=== PATIENT | male | born 1965 | race Caucasian/White ===

== ENCOUNTER 2017-08-19 06:56 | Day surgery (SDC) | payer BC ==
[2017-08-19] MEDS ORDERED: Midazolam 1 MG/ML 2 ML SDV ONE (07:29)
[2017-08-19] MEDS ORDERED: Propofol 200 MG/20 ML SDV ONE (07:29)
[2017-08-19] MEDS ORDERED: fentaNYL 100 MCG/2 ML SDV ONE (07:29)
[2017-08-19] MEDS ORDERED: Lactated Ringers 1,000 ML IV SCH (07:45)
--- NOTE | 2017-08-19 13:59 | OR ---
DATE OF PROCEDURE: 08/19/2017 PREOPERATIVE DIAGNOSIS: Colon cancer screening. POSTOPERATIVE DIAGNOSES: Arreguin-diverticulosis and several rectal polyps. PROCEDURES PERFORMED: Colonoscopy to the cecum with biopsy resection of three small rectal polyps, sent to the laboratory as one specimen; and snare cautery polypectomy of a larger one, sent to the laboratory as a separate specimen. SURGEON: Ash Farley MD. ANESTHESIA: IV anesthesia with monitored anesthesia care. INDICATION: This 51-year-old white male is referred for a colonoscopy for colon cancer screening. He has never had a colonoscopic exam. I counseled him for the procedure, including risks and alternatives, and he gave his informed consent to proceed. DESCRIPTION OF PROCEDURE: The patient was placed in the left lateral decubitus position. IV anesthesia was administered by the Anesthesia Service. Time-out was held. A rectal exam was performed, which was unremarkable. The flexible video Olympus colonoscope was introduced through his anus, up his rectum, and out his colon all the way to the cecum. En route, we saw multiple, both right and left-sided, diverticula. There was no bleeding or inflammation associated with them. Once the cecum was reached, the scope was slowly withdrawn, examining the mucosa throughout. No additional mucosal abnormalities were noted until we reached the proximal colon. Here, we saw three small polyps adjacent to each other. These were removed with the biopsy forceps and sent to the laboratory as one specimen. The scope was withdrawn a little further. In the mid-rectum, we encountered another larger polyp. This was initially biopsied. Since it was too large to remove using this technique, it was removed with a snare. This involved placing a snare about its base, elevating the polyp up away from the bowel wall, and applying electrocautery as the polyp was amputated. The polyp was aspirated through the scope and captured in a polyp trap. The scope was retroflexed in the rectum with the distal rectum appearing unremarkable. The scope was straightened and removed. He tolerated the procedure well. Ash Farley MD /[id number] MTDD
== END 2017-08-19 10:26 | disposition home or self-care (01) ==
LOC: JP.SDS 06:56
PROVIDERS: ATTEND Surgery
DX: Z12.11 Encounter for screening for malignant neoplasm of colon (principal); K62.1 Rectal polyp; K57.30 Diverticulosis of large intestine without perforation or abscess without bleeding; Z88.8 Allergy status to other drugs, medicaments and biological substances; F17.200 Nicotine dependence, unspecified, uncomplicated
CPT/HCPCS: 45380; 45385; J2250; J2704; J3010; J7120; 88305

== ENCOUNTER 2019-09-17 22:24 | Emergency (ER) | payer BC, OTHER ==
--- NOTE | 2019-09-17 23:38 | EDM.PDOC ---
ED HPI GENERAL MEDICAL PROBLEM - General Chief Complaint: Upper Extremity Injury/Pain Stated Complaint: SMASHED MIDDLE AND RING FINGER/LT HAND Time Seen by Provider: 09/17/19 23:29 Source of Information: Reports: Patient History Limitations: Reports: No Limitations - History of Present Illness INITIAL COMMENTS - FREE TEXT/NARRATIVE: Patient presents for evaluation of injury to the left middle and ring finger after he was working at home and a wall-mounted clock fell off and crushed the previously mentioned to fingers. Pain was severe and immediate. He tried elevating at home and putting ice on the area but everything was very very uncomfortable. He was brought by family for additional evaluation. No other fingers of the left hand are injured and there were no other associated injuries with this event today. Onset: Today Location: Reports: Upper Extremity, Left Quality: Reports: Sharp, Throbbing Severity: Severe Improves with: Reports: None Worsens with: Reports: Cold Therapy, Movement Context: Reports: Trauma 8 Pain Score (Numeric/FACES): 5 - Related Data Allergies Allergy/AdvReac Type Severity Reaction Status Date / Time codeine Allergy Other Verified 09/17/19 22:50 Home Meds: Home Meds buPROPion HCl [Wellbutrin Xl] 150 mg PO DAILY 08/17/17 [History] Past Medical History HEENT History: Reports: Impaired Vision Genitourinary History: Reports: Renal Calculus Musculoskeletal History: Reports: None Neurological History: Reports: None Psychiatric History: Reports: Depression Dermatologic History: Reports: Other (See Below) Other Dermatologic History: Vitalego - Infectious Disease History Infectious Disease History: Reports: Chicken Pox - Past Surgical History HEENT Surgical History: Reports: None Male Surgical History: Reports: None Neurological Surgical History: Reports: Spinal Fusion Musculoskeletal Surgical History: Reports: Shoulder Surgery Dermatological Surgical History: Reports: None Social & Family History - Tobacco Use Smoking Status *Q: Current Every Day Smoker Years of Tobacco use: 30 Packs/Tins Daily: 0.5 - Caffeine Use Caffeine Use: Reports: Coffee Review of Systems - Review of Systems Review Of Systems: Comprehensive ROS is negative, except as noted in HPI. Musculoskeletal: Reports: Other (Severe pain at terminal segments of the left ring and middle fingers. There is ecchymosis present in the area and swelling. It is too painful to bend the fingers.) ED EXAM, GENERAL - Physical Exam Exam: See Below Exam Limited By: No Limitations General Appearance: Alert, Moderate Distress Extremities: Other (There is swelling and pain involving the terminal segments of left middle and ring fingers. There is ecchymosis evident on the pads of both fingers. He keeps the hand elevated above his head.) Neurological: No Motor/Sensory Deficits Course - Vital Signs Last Recorded V/S: Last Vital Signs Temp 36.9 C 09/17/19 22:57 Pulse 75 09/18/19 00:23 Resp 16 09/18/19 00:23 BP 181/102 H 09/18/19 00:23 Pulse Ox 95 09/17/19 22:57 - Orders/Labs/Meds Meds: Medications Discontinued Medications Generic Name Dose Route Start Last Admin Trade Name Whit PRN Reason Stop Dose Admin Hydromorphone HCl 1 mg 09/17/19 23:42 09/17/19 23:51 Dilaudid IM 09/17/19 23:43 1 mg ONETIME ONE Administration - Radiology Interpretation Free Text/Narrative:: X-ray of the fingers ordered and reviewed by me shows comminuted fractures of abbey of the left middle and ring finger. There is no intra-articular involvement. Remainder of fingers are not injured. - Re-Assessments/Exams Free Text/Narrative Re-Assessment/Exam: 09/18/19 02:17 He was having severe pain in the fingers. 1 mg of hydromorphone was given intramuscularly for symptoms. He declined digital lidocaine blocks. I returned later to review imaging results. He will need to follow-up with orthopedics and a consult will be requested. In the meantime to [facility] finger splints were molded to the contour of the fingers and taped in place to assist with stabilization. Instrument prescription for hydrocodone 5/325 mg, 30 tablets, use as directed was ordered tonight. He should avoid using the fingers of the left hand and keep the splints on as much as possible. Departure - Departure Time of Disposition: 00:20 Disposition: Home, Self-Care 01 Condition: Good Clinical Impression: Closed fracture of tuft of distal phalanx of finger - Discharge Information *PRESCRIPTION DRUG MONITORING PROGRAM REVIEWED*: Not Applicable *COPY OF PRESCRIPTION DRUG MONITORING REPORT IN PATIENT GUZMAN: Not Applicable Instructions: Finger Fracture, Adult Referrals: Harsha Bailey MD [Primary Care Provider] - Forms: ED Department Discharge Additional Instructions: Keep hand/fingers elevated as much as possible to reduce pain. Cold packs to painful finger area 20 minutes off and on as tolerated. Use either 1 or 2 tablets as discussed for pain. A referral will be placed to local orthopedics for follow-up evaluation of the fingers. Avoid painful use of the fingers area. Keep splints on as much as possible. Return to ER if feeling worse in anyway. Sepsis Event Note - Evaluation Sepsis Screening Result: No Definite Risk - Focused Exam Vital Signs: Vital Signs Temp Pulse Resp BP Pulse Ox 09/18/19 00:23 75 16 181/102 H 09/17/19 23:27 86 182/107 H 09/17/19 22:57 36.9 C 86 18 180/97 H 95 09/17/19 22:45 36.9 C 86 18 210/113 H 95 Date Exam was Performed: 09/18/19 Time Exam was Performed: 02:13
[2019-09-17] MEDS ORDERED: HYDROmorphone 1 MG/ML Syringe IM ONE (23:42)
--- NOTE | 2019-09-17 23:56 | CRLCR ---
Indication: Third and 4th finger injury, pain Technique: Three views of the left 3rd and 4th fingers Comparison: None Findings/Impression: 1. There is a minimally displaced comminuted fracture involving the distal tip of the 3rd distal phalanx. 2. There is also a minimally displaced fracture of the 4th distal phalanx 3. There is no involvement of the articular surfaces. The joints remain anatomically aligned. 4. Mild soft tissue edema is noted in the distal 3rd and 4th fingers. Dictated by Emeli Mccann MD @ Sep 17 2019 11:55PM Signed by Dr. Emeli Mccann @ Sep 17 2019 11:55PM
== END 2019-09-18 00:28 | disposition home or self-care (01) ==
LOC: JP.ED 22:24
DX: S62.633A Displaced fracture of distal phalanx of left middle finger, initial encounter for closed fracture (principal); S62.635A Displaced fracture of distal phalanx of left ring finger, initial encounter for closed fracture; F32.9 Major depressive disorder, single episode, unspecified; F17.210 Nicotine dependence, cigarettes, uncomplicated; Z79.899 Other long term (current) drug therapy; Z88.5 Allergy status to narcotic agent; W20.8XXA Other cause of strike by thrown, projected or falling object, initial encounter; Y92.009 Unspecified place in unspecified non-institutional (private) residence as the place of occurrence of the external cause
CPT/HCPCS: 73140-LT; 96372; 99283-25; J1170

== ENCOUNTER 2022-11-14 07:38 | Day surgery (SDC) | payer OTHER ==
[2022-11-14] MEDS ORDERED: Propofol 200 MG/20 ML SDV ONE (07:56)
[2022-11-14] MEDS ORDERED: Midazolam 1 MG/ML 2 ML SDV ONE (07:56)
[2022-11-14] MEDS ORDERED: fentaNYL 50 MCG/ML SDV ONE (07:56)
[2022-11-14] MEDS ORDERED: Sodium Chloride 0.9% 1,000 ML IV SCH (08:45)
== END 2022-11-14 10:17 | disposition home or self-care (01) ==
LOC: JP.SDS 07:38
PROVIDERS: ATTEND Surgery
DX: Z12.11 Encounter for screening for malignant neoplasm of colon (principal); K62.1 Rectal polyp; K57.30 Diverticulosis of large intestine without perforation or abscess without bleeding; I10 Essential (primary) hypertension; F17.200 Nicotine dependence, unspecified, uncomplicated; E66.9 Obesity, unspecified; Z88.5 Allergy status to narcotic agent; Z86.010 Personal history of colon polyps
CPT/HCPCS: 45380; 88305; J2250; J2704; J3010; J7030

== ENCOUNTER 2023-10-27 11:09 | Emergency (ER) | payer OTHER ==
[2023-10-27] MEDS ORDERED: Iopamidol 612 MG/ML 100 ML Bottle IV PRN (12:20)
[2023-10-27] MEDS ORDERED: Sodium Chloride 0.9% 10 ML Syringe FLUSH PRN (12:20)
[2023-10-27] MEDS ORDERED: Sodium Chloride 0.9% 80 ML IV ONE (12:20)
[2023-10-27 12:31] LABS: BASOPHILS ABSOLUTE AUTO 0.03 K/uL (0.00-0.10); BASOPHILS PERCENT AUTO 0.3 % (0.1-1.3); EOSINOPHILS ABSOLUTE AUTO 0.06 K/uL (0.00-0.40); EOSINOPHILS PERCENT AUTO 0.7 % (0.0-5.4); HEMATOCRIT 47.1 % (38.4-49.7); HEMOGLOBIN 15.7 g/dL (12.9-16.9); IMMATURE GRAN PERCENT AUTO 0.2 % (0.0-0.7); LYMPHOCYTES ABSOLUTE AUTO 1.33 K/uL (0.8-3.3); LYMPHOCYTES PERCENT AUTO 14.5 % (11.4-47.7); MEAN CORPUSCULAR HEMOGLOBIN 29.8 pg (31.6-35.5); MEAN CORPUSCULAR HGB CONC 33.3 g/dL (31.6-35.5); MEAN CORPUSCULAR VOLUME 89.5 fL (81.4-99.0); MONOCYTES ABSOLUTE AUTO 0.71 K/uL (0.20-0.90); MONOCYTES PERCENT AUTO 7.7 % (3.3-12.6); NEUTROPHILS ABSOLUTE AUTO 7.03 K/uL (1.0-7.6); NEUTROPHILS PERCENT AUTO 76.6 % (40.0-78.1); PLATELET COUNT,PLT 310 K/uL (130-375); RED BLOOD CELL COUNT 5.26 M/uL (4.14-5.76); WHITE BLOOD CELL COUNT,WBC 9.2 K/uL (3.2-11.0)
[2023-10-27 12:33] LABS: APPEARANCE,URINE CLEAR (CLEAR); BILIRUBIN,URINE NEGATIVE (NEGATIVE); COLOR,URINE YELLOW (YELLOW); GLUCOSE,URINE NEGATIVE (NEGATIVE); KETONES,URINE NEGATIVE (NEGATIVE); LEUKOCYTE ESTERASE,URINE NEGATIVE (NEGATIVE); NITRITE,URINE NEGATIVE (NEGATIVE); OCCULT BLOOD,URINE SMALL (NEGATIVE); PH,URINE 6.5 (5.0-8.0); PROTEIN,URINE NEGATIVE (NEGATIVE); UROBILINOGEN,URINE 0.2 EU/dL (0.2-1.0)
[2023-10-27 12:36] LABS: AMPHETAMINES SCREEN, URINE NEGATIVE (NEGATIVE); BARBITURATE SCREEN,URINE NEGATIVE (NEGATIVE); BENZODIAZEPINES SCREEN,URINE NEGATIVE (NEGATIVE); METHADONE SCREEN, URINE NEGATIVE (NEGATIVE); METHAMPHETAMINES SCREEN, URINE NEGATIVE (NEGATIVE); OXYCODONE SCREEN,URINE NEGATIVE (NEGATIVE)
[2023-10-27 12:36] LABS: IMMATURE GRAN ABSOLUTE AUTO 0.02 K/uL (0.00-0.23)
[2023-10-27 12:37] LABS: PROPOXYPHENE SCREEN,URINE NEGATIVE (NEGATIVE); THC SCREEN,URINE 50 NG/ML PRESUMPTIVE POSITIVE (NEGATIVE)
[2023-10-27 12:58] LABS: RBC,URINE 0-5 (0-5)
[2023-10-27 12:59] LABS: AMORPHOUS SEDIMENT,URINE NOT SEEN; BACTERIA,URINE NOT SEEN; EPITHELIAL CELLS,URINE FEW; MUCUS,URINE MANY; WBC,URINE 0-5 (0-5)
[2023-10-27 13:01] LABS: A/G RATIO 0.9 (1.2-2.2); ALANINE AMINOTRANSFERASE,ALT 19 U/L (12-78); ALBUMIN 3.9 g/dL (3.4-5.0); ALKALINE PHOSPHATASE 86 U/L (46-116); ANION GAP 13.4 mmol/L (5.0-14.0); ASPARTATE AMNIOTRANSFERASE,AST 15 U/L (15-37); BILIRUBIN TOTAL 0.5 mg/dL (0.2-1.0); BLOOD UREA NITROGEN,BUN 21 mg/dL (7-18); C-REACTIVE PROTEIN 2.54 mg/dL (<0.50); CALCIUM 8.9 mg/dL (8.5-10.1); CARBON DIOXIDE,CO2 27 mmol/L (21-32); CHLORIDE,CL 102 mmol/L (100-108); CREATININE 1.1 mg/dL (0.8-1.3); EST CRCL DRUG DOSING (CG) 86.14 mL/min; ESTIMATED GFR 78 mL/min (>60); GLUCOSE RANDOM 95 mg/dL (74-106); POTASSIUM,K 3.9 mmol/L (3.6-5.2); PROTEIN TOTAL,TP 8.1 g/dL (6.4-8.2); SODIUM,NA 142 mmol/L (140-148); TROPONIN I HIGH SENSITIVITY 6.6 pg/mL (<=60.3); TSH ULTRASENSITIVE 1.099 uIU/mL (0.358-3.740)
== END 2023-10-27 15:24 | disposition home or self-care (01) ==
LOC: JP.ED 11:09
DX: K80.20 Calculus of gallbladder without cholecystitis without obstruction (principal); K57.90 Diverticulosis of intestine, part unspecified, without perforation or abscess without bleeding; F41.9 Anxiety disorder, unspecified; Z88.8 Allergy status to other drugs, medicaments and biological substances; Z79.899 Other long term (current) drug therapy
CPT/HCPCS: 36415; 71046; 71046-26; 71260; 71260-26; 74177; 74177-26; 80053; 80305-QW; 81001; 84443; 84484; 85025; 86140; 87449; 93005; 99284

== ENCOUNTER 2024-02-05 06:52 | Day surgery (SDC) | payer OTHER ==
[2024-02-05] MEDS ORDERED: fentaNYL 50 MCG/ML SDV ONE (07:29)
[2024-02-05] MEDS ORDERED: Midazolam 1 MG/ML 2 ML SDV ONE (07:29)
[2024-02-05] MEDS ORDERED: Propofol 200 MG/20 ML SDV ONE ×2 (07:29→08:28)
[2024-02-05] MEDS: Lactated Ringers 1,000 ML IV SCH (07:51)
== END 2024-02-05 10:09 | disposition home or self-care (01) ==
LOC: JP.SDS 06:52
PROVIDERS: ATTEND Surgery
DX: K29.50 Unspecified chronic gastritis without bleeding (principal); K52.832 Lymphocytic colitis; K62.1 Rectal polyp; K57.30 Diverticulosis of large intestine without perforation or abscess without bleeding; R68.81 Early satiety; R63.4 Abnormal weight loss; G47.33 Obstructive sleep apnea (adult) (pediatric); I10 Essential (primary) hypertension; F41.9 Anxiety disorder, unspecified; F32.A Depression, unspecified; Z86.010 Personal history of colon polyps; Z88.5 Allergy status to narcotic agent
CPT/HCPCS: 00811; 00813; 43239; 45380; 88305; J2250; J2704; J3010; J7120

== ENCOUNTER 2024-02-23 15:20 | Emergency (ER) | payer OTHER ==
[2024-02-23 16:11] LABS: BASOPHILS ABSOLUTE AUTO 0.02 K/uL (0.00-0.10); BASOPHILS PERCENT AUTO 0.3 % (0.1-1.3); EOSINOPHILS ABSOLUTE AUTO 0.05 K/uL (0.00-0.40); EOSINOPHILS PERCENT AUTO 0.7 % (0.0-5.4); HEMATOCRIT 41.1 % (38.4-49.7); HEMOGLOBIN 13.7 g/dL (12.9-16.9); IMMATURE GRAN ABSOLUTE AUTO 0.04 K/uL (0.00-0.23); IMMATURE GRAN PERCENT AUTO 0.5 % (0.0-0.7); LYMPHOCYTES ABSOLUTE AUTO 0.92 K/uL (0.8-3.3); LYMPHOCYTES PERCENT AUTO 12.2 % (11.4-47.7); MEAN CORPUSCULAR HEMOGLOBIN 29.8 pg (31.6-35.5); MEAN CORPUSCULAR HGB CONC 33.3 g/dL (31.6-35.5); MEAN CORPUSCULAR VOLUME 89.3 fL (81.4-99.0); MONOCYTES ABSOLUTE AUTO 0.51 K/uL (0.20-0.90); MONOCYTES PERCENT AUTO 6.7 % (3.3-12.6); NEUTROPHILS ABSOLUTE AUTO 6.03 K/uL (1.0-7.6); NEUTROPHILS PERCENT AUTO 79.6 % (40.0-78.1); PLATELET COUNT,PLT 385 K/uL (130-375); WHITE BLOOD CELL COUNT,WBC 7.6 K/uL (3.2-11.0)
[2024-02-23 16:18] LABS: PROTHROMBIN TIME 9.8 sec (9.2-10.6)
[2024-02-23 16:21] LABS: A/G RATIO 0.6 (1.2-2.2); ALANINE AMINOTRANSFERASE,ALT 53 U/L (12-78); ALBUMIN 2.7 g/dL (3.4-5.0); ALKALINE PHOSPHATASE 93 U/L (46-116); ASPARTATE AMNIOTRANSFERASE,AST 25 U/L (15-37); BILIRUBIN TOTAL 0.2 mg/dL (0.2-1.0); BLOOD UREA NITROGEN,BUN 24 mg/dL (7-18); CARBON DIOXIDE,CO2 31 mmol/L (21-32); CHLORIDE,CL 102 mmol/L (100-108); CREATININE 1.1 mg/dL (0.8-1.3); EST CRCL DRUG DOSING (CG) 86.14 mL/min; ESTIMATED GFR 78 mL/min (>60); GLUCOSE RANDOM 95 mg/dL (74-106); POTASSIUM,K 4.3 mmol/L (3.6-5.2); PROTEIN TOTAL,TP 7.3 g/dL (6.4-8.2); SODIUM,NA 136 mmol/L (140-148)
[2024-02-23 16:23] LABS: ANION GAP 7.3 mmol/L (5.0-14.0)
[2024-02-23] MEDS: Sodium Chloride 0.9% 10 ML Syringe FLUSH PRN (16:29)
[2024-02-23] MEDS: Sodium Chloride 0.9% 100 ML IV ONE (16:29)
[2024-02-23] MEDS: Iopamidol 755 Mg/ML 100 ML Bottle IV SCH (16:29)
== END 2024-02-23 18:29 | disposition home or self-care (01) ==
LOC: JP.ED 15:20
DX: D73.5 Infarction of spleen (principal); N28.0 Ischemia and infarction of kidney; I10 Essential (primary) hypertension; F17.210 Nicotine dependence, cigarettes, uncomplicated; Z79.899 Other long term (current) drug therapy; Z88.5 Allergy status to narcotic agent
CPT/HCPCS: 36415; 71275; 80053; 83605; 85025; 85610; 86140; 93005; 93970; 99284; J3490; Q9967

== ENCOUNTER 2024-07-18 10:32 | Emergency (ER) | payer OTHER ==
[2024-07-18] MEDS: Acetaminophen 325 MG Tab PO ONE (11:30)
[2024-07-18 11:37] LABS: APPEARANCE,URINE CLEAR (CLEAR); BILIRUBIN,URINE NEGATIVE (NEGATIVE); COLOR,URINE YELLOW (YELLOW); GLUCOSE,URINE NEGATIVE (NEGATIVE); KETONES,URINE NEGATIVE (NEGATIVE); LEUKOCYTE ESTERASE,URINE NEGATIVE (NEGATIVE); NITRITE,URINE NEGATIVE (NEGATIVE); OCCULT BLOOD,URINE SMALL (NEGATIVE); PROTEIN,URINE NEGATIVE (NEGATIVE); UROBILINOGEN,URINE 0.2 EU/dL (0.2-1.0)
[2024-07-18 11:43] LABS: BASOPHILS PERCENT AUTO 0.1 % (0.1-1.3); EOSINOPHILS ABSOLUTE AUTO 0.04 K/uL (0.00-0.40); EOSINOPHILS PERCENT AUTO 0.5 % (0.0-5.4); HEMATOCRIT 44.9 % (38.4-49.7); HEMOGLOBIN 15.1 g/dL (12.9-16.9); IMMATURE GRAN PERCENT AUTO 0.3 % (0.0-0.7); LYMPHOCYTES PERCENT AUTO 11.3 % (11.4-47.7); MEAN CORPUSCULAR HEMOGLOBIN 30.9 pg (31.6-35.5); MEAN CORPUSCULAR HGB CONC 33.6 g/dL (31.6-35.5); MONOCYTES ABSOLUTE AUTO 0.65 K/uL (0.20-0.90); MONOCYTES PERCENT AUTO 8.1 % (3.3-12.6); NEUTROPHILS ABSOLUTE AUTO 6.37 K/uL (1.0-7.6); NEUTROPHILS PERCENT AUTO 79.7 % (40.0-78.1); PLATELET COUNT,PLT 209 K/uL (130-375); RED BLOOD CELL COUNT 4.88 M/uL (4.14-5.76)
[2024-07-18 11:44] LABS: BASOPHILS ABSOLUTE AUTO 0.01 K/uL (0.00-0.10); IMMATURE GRAN ABSOLUTE AUTO 0.02 K/uL (0.00-0.23)
[2024-07-18 11:48] LABS: AMORPHOUS SEDIMENT,URINE NOT SEEN; BACTERIA,URINE NOT SEEN; EPITHELIAL CELLS,URINE NOT SEEN; MUCUS,URINE NOT SEEN; RBC,URINE 0-5 (0-5); WBC,URINE 0-5 (0-5)
== END 2024-07-18 13:42 | disposition home or self-care (01) ==
LOC: JP.ED 10:32
DX: N49.2 Inflammatory disorders of scrotum (principal); I10 Essential (primary) hypertension; Z87.891 Personal history of nicotine dependence; Z79.899 Other long term (current) drug therapy; Z79.51 Long term (current) use of inhaled steroids; Z79.891 Long term (current) use of opiate analgesic; Z88.5 Allergy status to narcotic agent
CPT/HCPCS: 36415; 76870; 81001; 83605; 84145; 85025; 86140; 93976; 99283; 99284; A9270

== ENCOUNTER 2024-09-11 11:48 | Emergency (ER) | payer OTHER ==
[~2024-09-11 11:48] MED LIST: LORazepam 2 MG/ML SDV ONE
[2024-09-11] MEDS ORDERED: LORazepam 2 MG/ML SDV ONE ×2 (11:51→11:56)
[2024-09-11] MEDS: LORazepam 2 MG/ML SDV IVPUSH ONE ×4 (11:53→12:20)
[2024-09-11] MEDS: Sodium Chloride 0.9% 1,000 ML IV SCH (12:00)
[2024-09-11] MEDS ORDERED: Sodium Chloride 0.9% 10 ML Syringe FLUSH PRN (12:11)
[2024-09-11] MEDS: levETIRAcetam in NaCl (iso-os) 1,000 MG in Premix Bag 1 BAG IV ONE (12:18)
[2024-09-11 12:32] LABS: BASOPHILS PERCENT AUTO 0.2 % (0.1-1.3); EOSINOPHILS ABSOLUTE AUTO 0.03 K/uL (0.00-0.40); EOSINOPHILS PERCENT AUTO 0.3 % (0.0-5.4); HEMATOCRIT 44.3 % (38.4-49.7); HEMOGLOBIN 14.9 g/dL (12.9-16.9); IMMATURE GRAN ABSOLUTE AUTO 0.07 K/uL (0.00-0.23); IMMATURE GRAN PERCENT AUTO 0.8 % (0.0-0.7); LYMPHOCYTES ABSOLUTE AUTO 0.72 K/uL (0.8-3.3); LYMPHOCYTES PERCENT AUTO 7.7 % (11.4-47.7); MEAN CORPUSCULAR HEMOGLOBIN 30.8 pg (31.6-35.5); MEAN CORPUSCULAR HGB CONC 33.6 g/dL (31.6-35.5); MEAN CORPUSCULAR VOLUME 91.7 fL (81.4-99.0); MONOCYTES ABSOLUTE AUTO 0.68 K/uL (0.20-0.90); MONOCYTES PERCENT AUTO 7.3 % (3.3-12.6); NEUTROPHILS PERCENT AUTO 83.7 % (40.0-78.1); PLATELET COUNT,PLT 293 K/uL (130-375); RED BLOOD CELL COUNT 4.83 M/uL (4.14-5.76); WHITE BLOOD CELL COUNT,WBC 9.3 K/uL (3.2-11.0)
[2024-09-11 12:34] LABS: BASOPHILS ABSOLUTE AUTO 0.02 K/uL (0.00-0.10)
[2024-09-11] MEDS ORDERED: Succinylcholine 200 MG/10 ML MDV ONE (12:45)
[2024-09-11] MEDS ORDERED: Propofol 200 MG/20 ML SDV ONE (12:45)
[2024-09-11 12:50] LABS: A/G RATIO 0.8 (1.2-2.2); ALANINE AMINOTRANSFERASE,ALT 32 U/L (12-78); ALKALINE PHOSPHATASE 105 U/L (46-116); ASPARTATE AMNIOTRANSFERASE,AST 32 U/L (15-37); BILIRUBIN TOTAL 0.4 mg/dL (0.2-1.0); BLOOD UREA NITROGEN,BUN 16 mg/dL (7-18); C-REACTIVE PROTEIN 1.65 mg/dL (<0.50); CALCIUM 8.9 mg/dL (8.5-10.1); CARBON DIOXIDE,CO2 17 mmol/L (21-32); CHLORIDE,CL 101 mmol/L (100-108); CREATININE 1.6 mg/dL (0.8-1.3); EST CRCL DRUG DOSING (CG) 59.22 mL/min; ESTIMATED GFR 50 mL/min (>60); GLUCOSE RANDOM 155 mg/dL (74-106); SODIUM,NA 142 mmol/L (140-148)
[2024-09-11] MEDS: propofoL 1,000 MG/100 ML 100 ML IV SCH (12:53)
[2024-09-11 12:58] LABS: BICARBONATE,ARTERIAL 20.1 mmol/L (22.0-26.0); METHEMOGLOBIN 0.9 %; O2 SATURATION ARTERIAL 97.8 % (95.0-98.0); OXYHEMOGLOBIN 95.9 %; PCO2 ARTERIAL 48.8 mmHg (35.0-42.0)
[2024-09-11 12:59] LABS: BASE EXCESS ARTERIAL -7.3 mm/L
[2024-09-11 13:00] LABS: LACTIC ACID 12.4 mmol/L (0.4-2.0)
[2024-09-11] MEDS: Succinylcholine 200 MG/10 ML MDV IV ONE (13:01)
[2024-09-11] MEDS: Sodium Chloride 0.9% 1,000 ML IV ONE ×2 (13:06→17:29)
[2024-09-11] MEDS: Rocuronium 50 MG/5 ML Vial IVPUSH ONE ×3 (13:11→18:42)
[2024-09-11 14:24] LABS: APPEARANCE,URINE CLEAR (CLEAR); BILIRUBIN,URINE NEGATIVE (NEGATIVE); COLOR,URINE YELLOW (YELLOW); GLUCOSE,URINE NEGATIVE (NEGATIVE); KETONES,URINE NEGATIVE (NEGATIVE); LEUKOCYTE ESTERASE,URINE NEGATIVE (NEGATIVE); NITRITE,URINE NEGATIVE (NEGATIVE); OCCULT BLOOD,URINE SMALL (NEGATIVE); PROTEIN,URINE 100 mg/dL (NEGATIVE); UROBILINOGEN,URINE 0.2 EU/dL (0.2-1.0)
[2024-09-11] MEDS: Ketamine 500 MG/5 ML MDV IV ONE (14:25)
[2024-09-11 14:31] LABS: AMORPHOUS SEDIMENT,URINE NOT SEEN; AMPHETAMINES SCREEN, URINE NEGATIVE (NEGATIVE); BACTERIA,URINE RARE; BARBITURATE SCREEN,URINE NEGATIVE (NEGATIVE); BENZODIAZEPINES SCREEN,URINE PRESUMPTIVE POSITIVE (NEGATIVE); EPITHELIAL CELLS,URINE RARE; METHADONE SCREEN, URINE NEGATIVE (NEGATIVE); METHAMPHETAMINES SCREEN, URINE NEGATIVE (NEGATIVE); MUCUS,URINE RARE; OXYCODONE SCREEN,URINE NEGATIVE (NEGATIVE); PROPOXYPHENE SCREEN,URINE NEGATIVE (NEGATIVE); THC SCREEN,URINE 50 NG/ML PRESUMPTIVE POSITIVE (NEGATIVE); WBC,URINE 0-5 (0-5)
[2024-09-11] MEDS ORDERED: fentaNYL 2,500 MCG in Sodium Chloride 0.9% 200 ML IV SCH (14:45)
[2024-09-11] MEDS ORDERED: Midazolam 50 MG in Premix Bag 1 BAG IV SCH (14:45)
[2024-09-11] MEDS: Iopamidol 612 MG/ML 200 ML Bottle IV ONE (15:12)
[2024-09-11] MEDS: Sodium Chloride 0.9% 80 ML IV ONE (15:13)
[2024-09-11] MEDS: Sodium Chloride 0.9% 10 ML Syringe FLUSH ONE (15:13)
[2024-09-11 15:21] LABS: TROPONIN I HIGH SENSITIVITY 78.7 pg/mL (<=60.3)
[2024-09-11 15:23] LABS: SODIUM,ISTAT 137 mmol/L (140-148)
[2024-09-11 15:25] LABS: BASE EXCESS ARTERIAL,ISTAT -2 mmol/L (-2-3); HCO3 ARTERIAL,ISTAT 20.8 mmol/L (22.0-26.0); HEMATOCRIT,ISTAT 36 % (36-48); O2 SATURATION ARTERIAL,ISTAT 99 % (95-98); PCO2 ARTERIAL,ISTAT 24.8 mmHG (35-45); PH ARTERIAL,ISTAT 7.53 (7.35-7.45); PO2 ARTERIAL,ISTAT 111 mmHg (80-105); TCO2 ARTERIAL,ISTAT 22 mmol/L (23-27)
[2024-09-11 15:27] LABS: ALLEN TEST, ISTAT NOT PERFORMED
[2024-09-11 15:29] LABS: CALCIUM IONIZED,ISTAT 0.99 mmol/L (1.12-1.32)
[2024-09-11] MEDS ORDERED: Sodium Chloride 0.9% 10 ML Syringe FLUSH ONE (16:02)
[2024-09-11] MEDS: fentaNYL 1,000 MCG in Sodium Chloride 0.9% 80 ML IV SCH (16:08)
[2024-09-11] MEDS: MIDAZOLAM IV SCH (16:13)
[2024-09-11] MEDS: SODIUM CHLORIDE 0.9% IV SCH (16:13)
[2024-09-11 16:27] LABS: CORONAVIRUS COVID-19 NAA NEGATIVE (NEGATIVE); INFLUENZA A NAA NEGATIVE (NEGATIVE); INFLUENZA B NAA NEGATIVE (NEGATIVE); RESPIRATORY SYNCYTIAL VIR NAA NEGATIVE (NEGATIVE)
[2024-09-11] MEDS: Midazolam 1 MG/ML 2 ML SDV IVPUSH ONE (17:00)
[2024-09-11] MEDS: fentaNYL 50 MCG/ML SDV IVPUSH ONE (17:01)
[2024-09-11] MEDS ORDERED: Piperacillin/Tazobactam 4.5 GM in Sodium Chloride 0.9% 100 ML IV ONE (17:15)
[2024-09-11] MEDS: levETIRAcetam in NaCl (iso-os) 1,500 MG in Premix Bag 100 BAG IV ONE (17:22)
[2024-09-11] MEDS: Meropenem 1 GM in Sodium Chloride 0.9% 100 ML IV ONE (17:42)
[2024-09-11] MEDS: Sodium Chloride 0.9% 100 ML IV ONE (18:42)
[2024-09-11] MEDS: Iopamidol 755 Mg/ML 100 ML Bottle IV ONE (18:42)
== END 2024-09-11 19:18 ==
LOC: JP.ED 11:48
DX: R56.9 Unspecified convulsions (principal); I10 Essential (primary) hypertension; Z88.5 Allergy status to narcotic agent; Z79.899 Other long term (current) drug therapy
CPT/HCPCS: 0241U; 31500; 36415; 36600; 51702; 70450; 70496; 70498; 71260; 74177; 80053; 80143; 80179; 80305-QW; 80307; 81001; 82803; 83605; 84145; 84484; 85025; 86140; 87040; 87077; 87186; 93005; 93010; 96361; 96365; 96366; 96367; 96368; 96375; 96376; 99285; 99291-25; 99292; J0330; J1953; J2060; J2185; J2250; J2704; J3010; J3490; J7030; Q9967

== ENCOUNTER 2024-10-04 18:32 | Emergency (ER) | payer OTHER | END 2024-10-04 19:40 | disposition left against medical advice (07) | LOC: JP.ED 18:32 | DX: Z53.21 Procedure and treatment not carried out due to patient leaving prior to being seen by health care provider (principal) ==

== ENCOUNTER 2025-03-02 17:48 | Emergency (ER) | payer OTHER | END 2025-03-02 18:40 | disposition home or self-care (01) | LOC: JP.ED 17:48 | DX: Z76.0 Encounter for issue of repeat prescription (principal); I10 Essential (primary) hypertension; Z88.5 Allergy status to narcotic agent; Z79.899 Other long term (current) drug therapy | CPT/HCPCS: 99281; 99283 ==